=== PATIENT | female | born 1990 | race Two or more races ===

== ENCOUNTER 2018-01-26 09:38 | Emergency (ER) | payer OTHER ==
[2018-01-26 09:47] VITALS: BP 129/75
[2018-01-26] MEDS ORDERED: IBUPROFEN 400 MG TABLET PO STA (10:13)
[2018-01-26] MEDS ORDERED: ACETAMINOPHEN 325 MG TABLET PO STA (10:13)
--- NOTE | 2018-01-26 10:16 | ED Physician Documentation ---
History of Present Illness - Stated complaint Stated Complaint: R TOE INJ - Chief complaint Chief Complaint: Ext Problem - Additonal information Additional information: hx from pt toe vs bedpost denies preg Review of Systems Musculoskeletal: reports: Extremity pain PD PAST MEDICAL HISTORY - Past Surgical History Past Surgical History: Yes General: Cholecystectomy HEENT: Tonsil/Adenoidectomy - Present Medications Home Medications: Ambulatory Orders Medication Instructions Recorded Confirmed Loratadine 01/26/18 - Allergies Allergies/Adverse Reactions: Allergies Allergy/AdvReac Type Severity Reaction Status Date / Time No Known Drug Allergies Allergy Verified 03/22/13 16:11 - Social History Does the pt smoke?: No Smoking Status: Never smoker Does the pt drink ETOH?: No Does the pt have substance abuse?: No - Immunizations Immunizations are current?: Yes - POLST Patient has POLST: No PD ED PE NORMAL - Vitals Vital signs reviewed: Yes (tachy - here for toe injury - does not need septic wup) - Extremities Extremities: Other (R 4th toe TTP distally, no bruise no lac no deformity, MSVintact) Results - Vitals Vitals: Vital Signs - 24 hr 01/26/18 09:43 Temperature 36.4 C L Heart Rate 104 H Respiratory 16 Rate Blood Pressure 129/75 O2 Saturation 100 Oxygen O2 Source Room air PD MEDICAL DECISION MAKING - ED course ED course: MSE performed injury identified = lesser toe fx lawrence tape crutches motrin and safe to dc - Sepsis Event Vital Signs: Vital Signs - 24 hr 01/26/18 09:43 Temperature 36.4 C L Heart Rate 104 H Respiratory 16 Rate Blood Pressure 129/75 O2 Saturation 100 Oxygen O2 Source Room air Departure - Departure Disposition: 01 Home, Self Care Clinical Impression: Toe fracture, right Qualifiers: Encounter type: initial encounter Toe: lesser toe Fracture type: closed Phalanx : proximal Fracture alignment: nondisplaced Qualified Code(s): S92.514A - Nondisplaced fracture of proximal phalanx of right lesser toe(s), initial encounter for closed fracture Condition: Good Instructions: ED Crutch Walking, ED Fx Toe Closed Follow-Up: Jarrod Tuttle ARNP [Primary Care Provider] - Comments: Use the crutches as needed. Tape the toe to the middle toe for support. Motrin and ice as needed for pain and swelling Forms: Activity restrictions
--- NOTE | 2018-01-26 11:07 | XRAY Report ---
Procedure Date: 01/26/2018 Accession Number: [id number] / [id number] Procedure: XR - Toe(s) RT CPT Code: FULL RESULT: EXAM: RIGHT TOE RADIOGRAPHY EXAM DATE: 01/26/2018 10:48 AM. CLINICAL HISTORY: Toe injury. Toe pain. COMPARISON: None. TECHNIQUE: 3 views. FINDINGS: Bones: Oblique displaced proximal third right fourth proximal phalanx fracture with dorsal angulation. No intra-articular extent. Joints: Normal. No subluxations. Soft Tissues: Soft tissue swelling. IMPRESSION: 1. Right fourth proximal phalanx fracture. RADIA
== END 2018-01-26 12:48 | disposition home or self-care (01) ==
LOC: ED 09:38
DX: S92.514A Nondisplaced fracture of proximal phalanx of right lesser toe(s), initial encounter for closed fracture (principal); W22.03XA Walked into furniture, initial encounter
CPT/HCPCS: 73660; 99282; 99283; A9270

== ENCOUNTER 2020-05-10 10:36 | Emergency (ER) | payer OTHER ==
[2020-05-10 11:19] LABS: GLUCOSE, URINE (UA) NEGATIVE (NEGATIVE); KETONES,URINE (UA) >=80 mg/dL (NEGATIVE); LEUKOCYTE ESTERASE, URINE NEGATIVE (NEGATIVE); NITRITE,URINE NEGATIVE (NEGATIVE); OCCULT BLOOD,URINE LARGE (NEGATIVE); PH,URINE 5.5 PH (5.0-7.5); PROTEIN,URINE NEGATIVE (NEGATIVE); UROBILINOGEN,URINE 0.2 (NORMAL) E.U./dL (NORMAL)
[2020-05-10 11:21] LABS: CLARITY,URINE HAZY (CLEAR)
[2020-05-10 11:22] LABS: BILIRUBIN,URINE NEGATIVE (NEGATIVE); HCG UR QUAL NEGATIVE; ICTOTEST,URINE NEGATIVE
[2020-05-10 12:00] LABS: BACTERIA,URINE Few /HPF (None Seen); SQUAMOUS EPITHELIAL CELL,UR MOD Squamous (<= Few)
[2020-05-10] MEDS ORDERED: KETOROLAC 30 MG/ML VIAL IVP STA (13:14)
[2020-05-10] MEDS ORDERED: LIDOCAINE-MPF 2% 8 ML in SODIUM CHLORIDE 0.9% 50 ML IV STA (13:14)
--- NOTE | 2020-05-10 13:22 | ED Physician Documentation ---
History of Present Illness - Stated complaint Stated Complaint: LT PELVIC PX - Chief complaint Chief Complaint: Abd Pain - History obtained from History obtained from: Patient - History of Present Illness Timing: Today Pain level max: 9 Pain level now: 8 - Additonal information Additional information: sudden onset L flank pain this am. No nausea or vomiting. Nothing makes it better or worse. No urinary symptoms. No vaginal bleeding or discharge. No history of similar symptoms. Review of Systems Constitutional: denies: Fever, Chills GI: denies: Vomiting, Diarrhea Skin: denies: Rash Musculoskeletal: denies: Neck pain, Back pain Neurologic: denies: Headache PD PAST MEDICAL HISTORY - Past Medical History Past Medical History: No - Past Surgical History Past Surgical History: Yes General: Cholecystectomy HEENT: Tonsil/Adenoidectomy - Present Medications Home Medications: Ambulatory Orders Medication Instructions Recorded Confirmed Loratadine 01/26/18 Ibuprofen [Motrin] 800 mg PO Q8H PRN #30 tablet 05/10/20 Ondansetron Odt [Zofran] 4 mg TL Q6H PRN #10 tablet 05/10/20 Oxycodone HCl/Acetaminophen 1 - 2 each PO Q6H PRN #14 tablet 05/10/20 [Percocet 5-325 mg Tablet] - Allergies Allergies/Adverse Reactions: Allergies Allergy/AdvReac Type Severity Reaction Status Date / Time No Known Drug Allergies Allergy Verified 05/10/20 10:44 - Social History Does the pt smoke?: No Smoking Status: Never smoker Does the pt drink ETOH?: No Does the pt have substance abuse?: No - Immunizations Immunizations are current?: Yes - POLST Patient has POLST: No PD ED PE NORMAL - Vitals Vital signs reviewed: Yes - General General: Alert and oriented X 3, No acute distress - HEENT HEENT: Moist mucous membranes - Neck Neck: Supple, no meningeal sign - Cardiac Cardiac: RRR - Respiratory Respiratory: No respiratory distress, Clear bilaterally - Abdomen Abdomen: Soft, Non tender, Non distended - Back Back: No CVA TTP, No spinal TTP - Derm Derm: Warm and dry - Extremities Extremities: No edema - Neuro Neuro: Alert and oriented X 3 Results - Vitals Vitals: Vital Signs - 24 hr 05/10/20 05/10/20 05/10/20 10:44 13:37 13:55 Temperature 36.7 C 37.2 C Heart Rate 100 114 H 92 Respiratory 18 12 22 Rate Blood Pressure 128/97 H 145/82 H 141/92 H O2 Saturation 99 98 100 05/10/20 14:31 Temperature Heart Rate 98 Respiratory 18 Rate Blood Pressure 136/73 H O2 Saturation 99 Oxygen O2 Source Room air - Labs Labs: Laboratory Tests 05/10/20 05/10/20 05/10/20 11:11 12:33 12:33 WBC 13.1 H RBC 4.84 Hgb 13.9 Hct 40.8 MCV 84.3 MCH 28.7 MCHC 34.1 RDW 13.2 Plt Count 328 MPV 10.6 Neut # (Auto) 11.0 H Lymph # (Auto) 1.4 L [place] # (Auto) 0.5 Eos # (Auto) 0.1 Baso # (Auto) 0.0 Absolute Nucleated RBC 0.00 Nucleated RBC % 0.0 Sodium 137 Potassium 3.7 Chloride 102 Carbon Dioxide 22 Anion Gap 13.0 BUN 15 Creatinine 0.9 Estimated GFR (MDRD) 73 L Glucose 118 H Calcium 10.3 Total Bilirubin 1.0 AST 23 ALT 23 Alkaline Phosphatase 60 Total Protein 8.5 H Albumin 4.8 Globulin 3.7 Albumin/Globulin Ratio 1.3 Lipase 33 Urine Color YELLOW Urine Clarity HAZY Urine pH 5.5 Ur Specific [place] >=1.030 H Urine Protein NEGATIVE Urine Glucose (UA) NEGATIVE Urine Ketones >=80 H Urine Occult Blood LARGE H Urine Nitrite NEGATIVE Urine Bilirubin NEGATIVE Urine Urobilinogen 0.2 (NORMAL) Ur Leukocyte Esterase NEGATIVE Urine RBC 11-25 H Urine WBC 0-3 Ur Squamous Epith Cells MOD Squamous H Urine Bacteria Few Ur Microscopic Review INDICATED Urine Culture Comments NOT INDICATED Urine HCG, Qual NEGATIVE - Rads (name of study) CT abd/pelvis Radiology: Prelim report reviewed, EMP read contemporaneously, See rad report (3 mm left ureteral stone) PD MEDICAL DECISION MAKING - ED course Complexity details: reviewed results, re-evaluated patient, considered differential, d/w patient ED course: 30-year-old female presents to the emergency department with a left-sided ureteral stone. 3 mm. Should pass. Given Toradol and IV lidocaine. Pain resolved. No evidence of UTI. We will place on pain medication for home and have her follow-up with her doctor. Patient counseled regarding signs and symptoms for which I believe and urgent re-evaluation would be necessary. Patient with good understanding of and agreement to plan and is comfortable going home at this time This document was made in part using voice recognition software. While efforts are made to proofread this document, sound alike and grammatical errors may occur. Departure - Departure Disposition: 01 Home, Self Care Clinical Impression: Ureteral calculus, left Condition: Good Instructions: ED Stone Renal W Colic Follow-Up: your,doctor in 1 week [Other] Prescriptions: Ibuprofen [Motrin] 800 mg PO Q8H PRN #30 tablet PRN Reason: PAIN &/OR FEVER Oxycodone HCl/Acetaminophen [Percocet 5-325 mg Tablet] 1 - 2 each PO Q6H PRN #14 tablet PRN Reason: pain Ondansetron Odt [Zofran] 4 mg TL Q6H PRN #10 tablet PRN Reason: Nausea / Vomiting Comments: Drink plenty of water. Return if you worsen. You have a 3 mm left ureteral stone. This should pass on its own. Do not drink alcohol or drive while on narcotic pain medicine. Note that many narcotic pain relievers also contain tylenol/acetaminophen. Pleas e ensure that your total dose of acetaminophen from all sources does not exceed 3 grams (3000mg) per day. You may constipated on this medication, take a stool softener such as "Colace" twice a day while you are on it. Also recommend a [id number] laxative such as senna or MiraLAX any day that you do not have a bowel movement. If you received narcotic pain medication in the emergency department, do not drive or operate machinery for the next 24 hours.
[2020-05-10 13:43] LABS: BASOPHILS % (AUTO) 0.2 %; EOSINOPHILS # (AUTO) 0.1 10^3/uL (0.0-0.7); EOSINOPHILS % (AUTO) 0.4 %; HGB - HEMOGLOBIN 13.9 g/dL (12.0-16.0); LYMPHOCYTES # (AUTO) 1.4 10^3/uL (1.5-3.5); MEAN CORPUSCULAR HEMOGLOBIN 28.7 pg (27.0-31.0); MEAN CORPUSCULAR HGB CONC 34.1 g/dL (32.0-36.0); MEAN CORPUSCULAR VOLUME 84.3 fL (81.0-99.0); MEAN PLATELET VOLUME 10.6 fL (7.9-10.8); MONOCYTES # (AUTO) 0.5 10^3/uL (0.0-1.0); MONOCYTES % (AUTO) 3.8 %; NEUTROPHILS % (AUTO) 84.1 %; PLT - PLATELET COUNT 328 10^3/uL (130-450); RED BLOOD COUNT 4.84 10^6/uL (4.20-5.40); RED CELL DISTRIBUTION WIDTH 13.2 % (12.0-15.0); WHITE BLOOD COUNT 13.1 x10^3/uL (4.8-10.8)
--- NOTE | 2020-05-10 13:54 | CT Report ---
PROCEDURE: Abdomen/Pelvis WO INDICATIONS: L flank pain, possible ureteral stone TECHNIQUE: Noncontrast 5 mm thick sections acquired from the diaphragms to the symphysis. 5 mm coronal and sagi ttal reformats were then performed. For radiation dose reduction, the following was used: automated exposure control, adjustment of mA and/or kV according to patient size. COMPARISON: None. FINDINGS: Image quality: Excellent. ABDOMEN: Lung bases: Lung bases are clear. Heart size is normal. Solid organs: Liver and spleen are normal in size. Hepatic steatosis is seen. Gallbladder is surgic ally absent. Pancreas is normal in contours. No adrenal nodules. Kidneys are normal in size. Mild to moderate left-sided hydronephrosis and perinephric fat stranding is seen. 3 mm stone is seen in proximal left ureter just distal to left UPJ. Faint 2 mm nonobstructin g stone in mid pole of left kidney is also seen. No right-sided renal stone or hydronephrosis is seen . Right ureter is within normal limits. Peritoneum and bowel: Unenhanced bowel loops demonstrate normal wall thickness and caliber. No free fluid or air. Appendix is visualized and is within normal limits. Nodes and vessels: No retroperitoneal or mesenteric adenopathy by size criteria. Aorta and inferior vena cava are normal in caliber. Miscellaneous: There is a small umbilical hernia containing fat only. PELVIS: Genitourinary: Bladder wall thickness is normal. Miscellaneous: No inguinal hernias or adenopathy. Bones: No suspicious bony lesions. No vertebral body compression fractures. IMPRESSION: 1. 3 mm proximal left ureteral stone with mild to moderate left-sided hydronephrosis and perinephric fat stranding. Tiny nonobstructing left renal stone as above. No right-sided renal stone or hydroneph rosis. Normal-appearing right ureter and urinary bladder. 2. Normal appendix. No bowel obstruction. No free fluid of free air. 3. Hepatic steatosis. Prior cholecystectomy. Reviewed by: Mian Musa MD on 05/10/2020 12:52 PM [facility] Approved by: Mian Musa MD on 05/10/2020 12:52 PM [facility] Station ID: [id number]
[2020-05-10 13:55] LABS: ALBUMIN 4.8 g/dL (3.2-5.5); ALBUMIN/GLOBULIN RATIO 1.3 (1.0-2.2); CALCIUM 10.3 mg/dL (8.5-10.3); CREATININE 0.9 mg/dL (0.4-1.0); TOTAL PROTEIN 8.5 g/dL (6.7-8.2)
[2020-05-10 14:32] VITALS: BP 136/73
== END 2020-05-10 17:17 | disposition home or self-care (01) ==
LOC: ED 10:36
DX: N13.2 Hydronephrosis with renal and ureteral calculous obstruction (principal)
CPT/HCPCS: 36415; 74176; 80053; 81001; 81025; 83690; 85025; 96374; 96375; 99284; J7040; 81003; 87086

== ENCOUNTER 2020-06-14 08:00 | Outpatient (CLI) | payer OTHER ==
[2020-06-14 11:46] LABS: BASOPHILS % (AUTO) 0.4 %; EOSINOPHILS # (AUTO) 0.3 10^3/uL (0.0-0.7); EOSINOPHILS % (AUTO) 4.3 %; HGB - HEMOGLOBIN 12.9 g/dL (12.0-16.0); LYMPHOCYTES # (AUTO) 2.1 10^3/uL (1.5-3.5); LYMPHOCYTES % (AUTO) 28.9 %; MEAN CORPUSCULAR HEMOGLOBIN 27.4 pg (27.0-31.0); MEAN CORPUSCULAR HGB CONC 31.3 g/dL (32.0-36.0); MEAN CORPUSCULAR VOLUME 87.5 fL (81.0-99.0); MEAN PLATELET VOLUME 10.4 fL (7.9-10.8); MONOCYTES # (AUTO) 0.4 10^3/uL (0.0-1.0); MONOCYTES % (AUTO) 5.8 %; NEUTROPHILS # (AUTO) 4.4 10^3/uL (1.5-6.6); NEUTROPHILS % (AUTO) 60.5 %; PLT - PLATELET COUNT 300 10^3/uL (130-450); RED BLOOD COUNT 4.71 10^6/uL (4.20-5.40); RED CELL DISTRIBUTION WIDTH 12.9 % (12.0-15.0); WHITE BLOOD COUNT 7.2 x10^3/uL (4.8-10.8)
[2020-06-14 12:22] LABS: CALCIUM 9.3 mg/dL (8.5-10.3); CREATININE 0.6 mg/dL (0.4-1.0)
== END 2020-06-14 23:59 ==
LOC: LAB.N 08:00
PROVIDERS: ATTEND Physician Assistant Medical
DX: N39.0 Urinary tract infection, site not specified (principal); R00.0 Tachycardia, unspecified
CPT/HCPCS: 36415; 80048; 84443; 85025; 87086